=== PATIENT | female | born 1985 | race Asian ===

== ENCOUNTER 2018-02-12 21:30 | Emergency (ER) | payer BC | END 2018-02-12 22:15 | disposition left against medical advice (07) | LOC: ED 21:30 | DX: Z53.21 Procedure and treatment not carried out due to patient leaving prior to being seen by health care provider (principal) ==

== ENCOUNTER 2018-02-18 22:07 | Emergency (ER) | payer BC ==
[~2018-02-18] VITALS: Ht 165.1 cm; Wt 64.4 kg
[2018-02-18 22:15] VITALS: Ht 165.1 cm; Wt 64.4 kg
[2018-02-18 22:59] LABS: BASOPHIL % 0.4 % (0-2); PLATELET COUNT 210 x10^3mcL (130-400); RED CELL DISTRIBUTION WIDTH 15.4 % (11.5-14.5)
[2018-02-18 23:12] LABS: CARBON DIOXIDE 30.4 mmol/L (21-32); CHLORIDE SERUM 106 mmol/L (98-107); CREATININE SERUM 0.8 mg/dL (0.6-1.0); GFR1 > 60 mL/min; GLUCOSE SERUM 88 mg/dL (74-106); POTASSIUM SERUM 3.9 mmol/L (3.5-5.1); SODIUM SERUM 140 mmol/L (136-145)
[2018-02-18 23:13] LABS: AMPHETAMINE QUAL UR NONE DETECTED (NEG <=1000)
[2018-02-18 23:17] LABS: ALBUMIN 4.3 g/dL (3.4-5.0); ALKALINE PHOSPHATASE 41 U/L (46-116); ALT/SGPT 29 U/L (14-59); AST/SGOT 16 U/L (15-37); BILIRUBIN TOTAL 0.5 mg/dL (0.20-1.00); TOTAL PROTEIN, SERUM 7.2 g/dL (6.4-8.2)
[2018-02-18 23:24] VITALS: BP 126/68
== END 2018-02-18 23:24 | disposition home or self-care (01) ==
LOC: ED 22:07
PROVIDERS: Emergency Medicine
DX: F29 Unspecified psychosis not due to a substance or known physiological condition (principal); F31.9 Bipolar disorder, unspecified; Z88.0 Allergy status to penicillin
CPT/HCPCS: 36415; G0480